=== PATIENT | female | born 1965 | race Caucasian/White ===

== ENCOUNTER 2021-04-01 07:43 | Emergency (ER) | payer OTHER, SELFPAY ==
--- NOTE | ~2021-04-01 | CT_ITS ---
EXAMINATION: CT ABDOMEN AND PELVIS WITH CONTRAST CLINICAL INFORMATION: Lower abdominal pain and diarrhea COMPARISON: Previous CT June 2017 TECHNIQUE: Multidetector volumetric images were obtained from the superior aspect of the liver through the pubic symphysis following administration 85 mL of Omnipaque 350 intravenous contrast. Sagittal and coronal reformatted images were obtained on the technologist's workstation. Oral contrast: Yes This CT examination was performed using dose optimization techniques as appropriate, variously including the following: *Automated exposure control *Adjustment of mA and/or kV according to patient size (this includes techniques or standardized protocols for targeted exams where dose is matched to indication/reason for exam; i.e. extremities or head) *Use of iterative reconstruction technique DLP: 860 mGy-cm FINDINGS: LUNG BASES: The visualized lung bases are unremarkable. LIVER, GALLBLADDER, AND BILIARY TREE: The liver is low in attenuation suggestive of fatty infiltration. The liver is otherwise unremarkable. There is no biliary duct dilatation. The gallbladder is unremarkable with no evidence of radiopaque gallstones, gallbladder wall thickening, or obvious pericholecystic inflammatory changes. PANCREAS: Unremarkable. SPLEEN: Unremarkable. ADRENAL GLANDS: Unremarkable. KIDNEYS AND URETERS: The kidneys are normal in size, shape, and attenuation. No hydronephrosis, hydroureter, or calculi seen. No perinephric stranding. BLADDER: Unremarkable. GASTROINTESTINAL TRACT: There is mild wall thickening of the colon and stranding of the perivesicular fat and prominent vascularity suggestive of mild colitis. The small and large bowel are otherwise unremarkable. No evidence of obstruction, perforation or abscess is seen. The stomach is unremarkable. The appendix is unremarkable. ABDOMINAL WALL: There is a small umbilical hernia containing fat. LYMPH NODES: Normal. VASCULAR: Unremarkable. PELVIC VISCERA: Unremarkable. OSSEOUS STRUCTURES: There is mild anterior subluxation of L4 with respect L5. There is lower lumbar spine facet arthritis. CT/CT abdomen pelvis w con IMPRESSION: Pancolitis. Fatty liver.
[2021-04-01 07:59] VITALS: BP 131/74; PULSE 70; RESP 12; TEMP 36.7; O2SAT 97; BMI 34.4
[2021-04-01 08:42] VITALS: BP 143/71; PULSE 65; RESP 17; O2SAT 95
--- NOTE | 2021-04-01 08:42 | ED.ABDPAIN ---
HPI - Abdominal Pain General Chief Complaint: Abdominal Pain Stated Complaint: abd pain Time Seen by Provider: 04/01/21 08:41 Source: patient Mode of arrival: ambulatory Limitations: no limitations History of Present Illness MD elicited complaint: abdominal pain Pertinent past history: constipation Onset (ago): month(s) (3) Pain Consistency: intermittent Location: diffuse Severity: moderate Quality: cramping Radiation: none Migration to: no migration Exacerbating factors: bowel movement Relieving factors: nothing Context: history of similar episodes Associated symptoms: nausea, vomiting and constipation Treatments prior to arrival: other (tried OTC stool medications without relief) Related Data Previous Rx's Medication Instructions Recorded famotidine [Pepcid] 20 mg PO DAILY PRN #30 tab 04/01/21 metronidazole [Flagyl] 500 mg PO BID #14 tab 04/01/21 ondansetron 4 mg PO Q8H PRN #20 tab 04/01/21 Allergies Allergy/AdvReac Type Severity Reaction Status Date / Time Penicillins [PCN] Allergy Unknown UNKNOWN Unverified 06/05/20 16:46 doxycycline [DOXYCYCLINE] AdvReac Unknown NAUSEA Unverified 06/05/20 16:46 prednisone [PREDNISONE] AdvReac Unknown FAINTED Unverified 06/05/20 16:46 sulfamethoxazole AdvReac Unknown VOMITING Unverified 06/05/20 16:46 [From BACTRIM] trimethoprim [From BACTRIM] AdvReac Unknown VOMITING Unverified 06/05/20 16:46 Review of Systems Review of Systems Constitutional : No Weight loss, No Fever, No Chills ENT/Mouth : No sore throat, No Rhinorrhea Eyes: No Swelling, No Redness Cardiovascular : No Chest Pain, No SOB, NoEdema Respiratory : No Cough, No Sputum, No Wheezing Gastrointestinal : Positive Nausea, Positive Vomiting, no Diarrhea, positive abdominal Pain, No Hematochezia, No Melena, pos constipation Genitourinary : No Dysuria, No Urinary Frequency, No Hematuria, No Urgency Musculoskeletal : No joint pain, No Myalgias, No Joint Swelling Skin : No Skin Lesions, No rash Neuro : No Weakness, No Numbness, No Dizziness, No Headache Psych : No Anxiety/Panic, No Depression Heme/Lymph: No Bruising, No Lymphadenopathy Endocrine : No Polyuria, No Polydipsia All other systems reviewed and are negative. Physical Exam Vital Signs: Vital Signs: Last Vital Signs Temp 98.1 F 04/01/21 12:46 Pulse 57 04/01/21 12:46 Resp 16 04/01/21 12:46 BP 136/78 04/01/21 12:46 Pulse Ox 98 04/01/21 12:46 Body Mass Index 34.4 Appearance: Alert. Oriented X3. No acute distress. Eyes: Pupils equal, round and reactive to light. ENT: Pharynx normal. Neck: Normal inspection. Neck supple. CVS: Normal heart rate and rhythm. Pulses normal. Respiratory: No respiratory distress. Breath sounds normal. Abdomen: Soft and mild diffuse ttp no rebound or guarding Skin: Skin warm and dry. Normal skin color. Normal skin turgor. Extremities: No lower extremity edema. No calf ttp Neuro: Oriented X 3. No motor deficit. No sensory deficit. Course Course Course Narrative: will start on levofloxacin and flagyl - if c diff positive will DC at home though she is not having severe diarrhea and has no WBC count cannot tolerate augmentin or cipro flagyl will place on flagyl MDM - Abdominal Pain MDM Narrative Medical decision making narrative: 56 yo female with hx of colon polyps has had constipation and abdominal pain intermittently x 3 months sees a GI doctor comes in today as she is having increased pain and now bouts of mucousy stool at night with n/v - at this time possible IBS/colitis will obtain labs, CT scan for colitis/mass, IVF, dispo per results and findings. Differential Diagnosis Differential diagnosis: Likely abdominal pain, constipation and diverticulitis; Unlikely aortic dissection, calculus of kidney, mesenteric ischemia and small bowel obstruction Lab Data Result diagrams: 04/01/21 08:56 04/01/21 08:56 Labs: Lab Results 04/01/21 04/01/21 04/01/21 Range/Units 08:56 08:56 08:56 WBC 8.5 (4.8-10.8) X10*3/uL RBC 4.49 (4.20-5.50) X10*6/uL Hgb 13.9 (12.0-16.0) g/dl Hct 40.0 (37-47) % MCV 89.1 (80-98) fL MCH 31.0 (27.0-33.0) pg MCHC 34.8 (31.0-35.0) g/dl RDW 12.5 (11.0-16.0) % Plt Count 234 (160-400) X10*3/uL MPV 10.2 (9.4-12.3) fL Immature Gran % (Auto) 0.4 (0.0-0.4) % Neut % (Auto) 70.8 (45-73) % Lymph % (Auto) 18.8 L (20-40) % Cottle % (Auto) 8.1 (2-11) % Eos % (Auto) 1.2 (0-4) % Baso % (Auto) 0.7 (0-2) % Lymph # (Auto) 1.6 (1.2-4.9) X10*3/uL Cottle # (Auto) 0.7 (0.1-1.2) X10*3/uL Eos # (Auto) 0.1 (0.0-0.4) X10*3/uL Baso # (Auto) 0.1 (0.0-0.2) X10*3/uL Abs Immat Gran (auto) 0.03 (0.00-0.03) X10*3/uL Absolute Neuts (auto) 6.0 (2.0-8.3) X10*3/uL Absolute Nucleated RBC 0.000 (0.0-0.012) X10*3/uL Nucleated RBC % (auto) 0.0 (0.0-0.2) /100WBC Sodium 139 (135-145) mmol/L Potassium 3.9 (3.3-5.1) mmol/L Chloride 106 (96-108) mmol/L Carbon Dioxide 24 (22-29) mmol/L Anion Gap 13 (12-20) BUN 9 (9-16) mg/dL Creatinine 0.70 (0.5-1.4) mg/dL Estim Creat Clear Calc 110.2 Estimated GFR > 60 Random Glucose 100 (60-115) mg/dL Calcium 8.9 (8.4-10.2) mg/dL Magnesium 1.8 (1.6-2.6) mg/dL Total Bilirubin 0.6 (0.0-1.0) mg/dL Direct Bilirubin 0.2 (0.0-0.5) mg/dL AST 23 (5-31) U/L ALT 28 (0-31) U/L Alkaline Phosphatase 57 (39-117) U/L Total Protein 6.7 (6.5-8.0) g/dL Albumin 4.1 (3.5-5.0) g/dL Lipase 23 (8-78) U/L Urine Color YELLOW Urine Appearance CLEAR Urine pH 6.0 (5.0-8.0) Ur Specific Silvis 1.020 (1.005-1.025) Urine Protein NEG (NEG-TRACE) MG/DL Urine Glucose (UA) NEG (NEG) MG/DL Urine Ketones NEG (NEG) MG/DL Urine Blood TRACE (NEG) Urine Nitrite NEG (NEG) Ur Leukocyte Esterase NEG (NEG) Urine RBC 0-2 (0) /HPF Urine WBC 0 (0-4) /HPF Ur Squamous Epith Cells TRACE /LPF Urine Bacteria TRACE /LPF Stool Leukocytes, Qual (NEGATIVE) C. difficile Tox B Gene (Negative) 04/01/21 04/01/21 Range/Units 11:32 11:32 WBC (4.8-10.8) X10*3/uL RBC (4.20-5.50) X10*6/uL Hgb (12.0-16.0) g/dl Hct (37-47) % MCV (80-98) fL MCH (27.0-33.0) pg MCHC (31.0-35.0) g/dl RDW (11.0-16.0) % Plt Count (160-400) X10*3/uL MPV (9.4-12.3) fL Immature Gran % (Auto) (0.0-0.4) % Neut % (Auto) (45-73) % Lymph % (Auto) (20-40) % Cottle % (Auto) (2-11) % Eos % (Auto) (0-4) % Baso % (Auto) (0-2) % Lymph # (Auto) (1.2-4.9) X10*3/uL Cottle # (Auto) (0.1-1.2) X10*3/uL Eos # (Auto) (0.0-0.4) X10*3/uL Baso # (Auto) (0.0-0.2) X10*3/uL Abs Immat Gran (auto) (0.00-0.03) X10*3/uL Absolute Neuts (auto) (2.0-8.3) X10*3/uL Absolute Nucleated RBC (0.0-0.012) X10*3/uL Nucleated RBC % (auto) (0.0-0.2) /100WBC Sodium (135-145) mmol/L Potassium (3.3-5.1) mmol/L Chloride (96-108) mmol/L Carbon Dioxide (22-29) mmol/L Anion Gap (12-20) BUN (9-16) mg/dL Creatinine (0.5-1.4) mg/dL Estim Creat Clear Calc Estimated GFR Random Glucose (60-115) mg/dL Calcium (8.4-10.2) mg/dL Magnesium (1.6-2.6) mg/dL Total Bilirubin (0.0-1.0) mg/dL Direct Bilirubin (0.0-0.5) mg/dL AST (5-31) U/L ALT (0-31) U/L Alkaline Phosphatase (39-117) U/L Total Protein (6.5-8.0) g/dL Albumin (3.5-5.0) g/dL Lipase (8-78) U/L Urine Color Urine Appearance Urine pH (5.0-8.0) Ur Specific Silvis (1.005-1.025) Urine Protein (NEG-TRACE) MG/DL Urine Glucose (UA) (NEG) MG/DL Urine Ketones (NEG) MG/DL Urine Blood (NEG) Urine Nitrite (NEG) Ur Leukocyte Esterase (NEG) Urine RBC (0) /HPF Urine WBC (0-4) /HPF Ur Squamous Epith Cells /LPF Urine Bacteria /LPF Stool Leukocytes, Qual MOD: 3-9/OIF (NEGATIVE) C. difficile Tox B Gene NEGATIVE (Negative) Discharge Plan Discharge Clinical Impression: Colitis Patient Disposition: Home, Self-Care Instructions: Colitis (ED) Additional Instructions: return to ED for any worsening symptoms or concerns IF YOUR C DIFF COMES BACK POSITIVE I WILL CALL YOU AT HOME PLEASE CALL YOUR GI DOCTOR Prescriptions: New famotidine [Pepcid] 20 mg tablet 20 mg PO DAILY PRN (Reason: abdominal discomfort) Qty: 30 RF: 0 ondansetron 4 mg tablet,disintegrating 4 mg PO Q8H PRN (Reason: nausea and vomiting) Qty: 20 RF: 0 metronidazole [Flagyl] 500 mg tablet 500 mg PO BID Qty: 14 RF: 0 Stand Alone Forms: Work/School Release Interventions: ED Discharge Assessment Last Done: 04/01/21 13:17 Discharge Date/Time: 04/01/21 13:17 [facility] Past Medical History Attestation statement: The following information was validated with the patient. Medical History Anxiety Colon polyp Depression Social History Social History Alcohol intake: never Patient Tobacco Use Status: Never used Tobacco Use of substances other than those prescribed or required for medical reasons: No Advance Directives: Yes Advance Directives Information Provided: Yes Advance Directives on File: No
[2021-04-01] MEDS: 0.9 % Sodium Chloride 1,000 ML 999 ML IVCONT (09:03)
[2021-04-01] MEDS: ondansetron HCL 4 MG/2 ML VIAL IVPUSH (09:07)
--- NOTE | 2021-04-01 09:10 | PC.NURSE ---
Patient lying in bed in no acute distress. Pt rates abdominal pain and bloating a 6/10
[2021-04-01 09:20] LABS: MANUAL DIFF FLAG NO
[2021-04-01 09:22] LABS: Basophils Absolute Auto 0.1 X10*3/uL (0.0-0.2); Basophils Percent Auto 0.7 % (0-2); Eosinophils Absolute Auto 0.1 X10*3/uL (0.0-0.4); Eosinophils Percent Auto 1.2 % (0-4); Hemoglobin 13.9 g/dl (12.0-16.0); Imm Gran Abs Auto 0.03 X10*3/uL (0.00-0.03); Imm Gran Pct Auto 0.4 % (0.0-0.4); Lymphocytes Absolute Auto 1.6 X10*3/uL (1.2-4.9); Lymphocytes Percent Auto 18.8 % (20-40); Mean Corpuscular HGB Conc 34.8 g/dl (31.0-35.0); Mean Corpuscular Volume 89.1 fL (80-98); Mean Platelet Volume 10.2 fL (9.4-12.3); Monocytes Absolute Auto 0.7 X10*3/uL (0.1-1.2); Monocytes Percent Auto 8.1 % (2-11); Neutrophils Percent Auto 70.8 % (45-73); Platelet Count 234 X10*3/uL (160-400); Red Blood Count 4.49 X10*6/uL (4.20-5.50); Red Cell Distribution Width 12.5 % (11.0-16.0); White Blood Count 8.5 X10*3/uL (4.8-10.8)
[2021-04-01 09:28] LABS: Appearance Urine CLEAR; Color Urine YELLOW; Glucose Urine UA NEG (NEG); Leukocyte Esterase Urine NEG (NEG); Nitrite Urine NEG (NEG); Urine Blood TRACE (NEG); Urine Ketones NEG (NEG); Urine Protein NEG (NEG-TRACE)
[2021-04-01 09:44] LABS: Bacteria Urine TRACE /LPF; RBC Urine 0-2 /HPF (0); Squamous Epithelial Cell Urine TRACE /LPF; WBC Urine 0 /HPF (0-4)
[2021-04-01 09:53] LABS: Alanine Aminotransferase 28 U/L (0-31); Albumin Level 4.1 g/dL (3.5-5.0); Alkaline Phosphatase 57 U/L (39-117); Anion Gap 13 (12-20); Aspartate Amino Transferase 23 U/L (5-31); Bilirubin Direct 0.2 mg/dL (0.0-0.5); Bilirubin Total 0.6 mg/dL (0.0-1.0); Blood Urea Nitrogen 9 mg/dL (9-16); Calcium 8.9 mg/dL (8.4-10.2); Carbon Dioxide 24 mmol/L (22-29); Chloride 106 mmol/L (96-108); Creatinine Clr Calc Pharmacy 110.2; Estimated Glomerular Filt Rate > 60; Glucose Random 100 mg/dL (60-115); Lipase 23 U/L (8-78); Magnesium 1.8 mg/dL (1.6-2.6); Potassium 3.9 mmol/L (3.3-5.1); Sodium 139 mmol/L (135-145); Total Protein 6.7 g/dL (6.5-8.0)
[2021-04-01 10:00] VITALS: BP 123/72; PULSE 56; RESP 16; O2SAT 99
[2021-04-01] MEDS: iohexoL 350 MG/ML 100 ML INFUS..BTL 85 ML IV (10:09)
[2021-04-01 11:35] VITALS: BP 135/77; PULSE 59; RESP 16; O2SAT 98
[2021-04-01 12:38] LABS: Leukocytes Stool Qualitative MOD: 3-9/OIF (NEGATIVE)
[2021-04-01 12:46] VITALS: BP 136/78; PULSE 57; RESP 16; TEMP 36.7; O2SAT 98
[2021-04-01 13:13] LABS: CDiff Gene PCR NEGATIVE (Negative)
== END 2021-04-01 13:17 | disposition home or self-care (01) ==
PROVIDERS: Emergency Provider Emergency Medicine; PCP Hospitalist
DX: K52.9 Noninfective gastroenteritis and colitis, unspecified (principal); K59.00 Constipation, unspecified; R10.9 Unspecified abdominal pain; Z79.899 Other long term (current) drug therapy
CPT/HCPCS: 36415; 74177; 80048; 80076; 81001; 83690; 83735; 85025; 87493; 89055; 96361; 96365; 96375; 99284; 99285; J2405; Q9967